=== PATIENT | male | born 1965 | race Caucasian/White ===

== ENCOUNTER 2018-01-20 09:40 | Emergency (ER) | payer SELFPAY ==
[~2018-01-20] VITALS: Ht 177.8 cm; Wt 90.7 kg
[2018-01-20 09:47] VITALS: BP_SYST 116
[2018-01-20] MEDS ORDERED: IBUPROFEN 800 MG TABLET PO ONE (10:00)
[2018-01-20 11:17] VITALS: BP_SYST 116
== END 2018-01-20 11:35 ==
LOC: SED 09:40
DX: M70.21 Olecranon bursitis, right elbow (principal); M54.2 Cervicalgia; M54.5 Low back pain; Y93.89 Activity, other specified
CPT/HCPCS: 72040-TC; 72100-TC; 99284

== ENCOUNTER 2018-09-13 12:04 | Emergency (ER) | payer MEDICAID ==
[~2018-09-13] VITALS: Ht 167.6 cm; Wt 72.6 kg
[2018-09-13 12:09] VITALS: BP_SYST 140
--- NOTE | 2018-09-13 12:09 | NUR ---
Patient to ER bed H1 to gown for evaluation. Side rails up.
--- NOTE | 2018-09-13 12:12 | NUR ---
Dr Mallory at bedside examining patient
--- NOTE | 2018-09-13 12:13 | NUR ---
Pt brought by [facility] officer , [email or web address], pt presents to ER for medical clearance ,pt has Hx of Colon CA and being transfer to long-term, c/o mild bodyaches, afebrile ,VS WNL, denies bleeding, skin pink and warm, cap refill <3.
--- NOTE | 2018-09-13 12:23 | NUR ---
Patient given written and verbal discharge instructions and verbalizes understanding. ER MD Mallory discussed with patient the results and treatment provided. Patient in stable condition. ID arm band removed. No Rx given. Patient educated on pain management and to follow up with PMD. Pain Scale 0. Opportunity for questions provided and answered. Medication side effect fact sheet provided.
[2018-09-13 12:24] VITALS: BP_SYST 13
== END 2018-09-13 12:24 ==
LOC: SED 12:04
DX: Z02.89 Encounter for other administrative examinations (principal); F41.9 Anxiety disorder, unspecified; Z85.038 Personal history of other malignant neoplasm of large intestine
CPT/HCPCS: 99283